=== PATIENT | female | born 2000 | race Caucasian/White ===

== ENCOUNTER 2023-08-31 08:20 | Emergency (ER) | payer MEDICARE, SELFPAY ==
[2023-08-31] VITALS (13 sets, daily range): BP systolic 90–146; BP diastolic 50–96; BMI 39.2
--- NOTE | 2023-08-31 08:52 | EDRN ---
Gutierrez BREWER in room w/ pt.
--- NOTE | 2023-08-31 08:56 | ED.GENMED ---
History of Present Illness
<Wilson Preciado PA-C - Last Filed: 08/31/23 10:59>
General
Chief Complaint: Fever
Source: patient
Exam Limitations: none
Time Seen by Provider: 08/31/23 08:43
Travel History
Have you had any contact with someone who has COVID-19?: No
Do you have any symptoms of coronavirus? Fever > 100 degrees, chills, cough, shortness of breath, sore throat, loss of taste or smell, muscle aches, or headache?: Yes
Symptoms:: Fever, SOB
History of Present Illness
History of Present Illness:
22-year-old female otherwise healthy presents with 5 days worth of chills fever neck stiffness nausea vomiting. She notes a headache as well. Temperatures been as high as 101. No significant cough or shortness of breath. No photosensitivity. No
rash. She states her neck feels much better today than it has in the past. She has been using Tylenol and ibuprofen. No other complaints at this time
Past History
<Wilson Preciado PA-C - Last Filed: 08/31/23 10:59>
Past History
ED Past Medical History: Other (Anxiety and 3 previous panic attacks) and Other (PCOS)
ED Past Surgical History: Orthopedic
Social History
Tobacco: Non-smoker
Alcohol: None
Drug: None
Personal: Single
Living: with family
Employment: Student
Family History
Family History: Other (Noncontributory)
Phy Exam
<Wilson Preciado PA-C - Last Filed: 08/31/23 10:59>
Physical Exam
Physical Exam:
General: Well-appearing female no acute respiratory distress nontoxic
HEENT: Normocephalic atraumatic TMs normal posterior pharynx without erythema no asymmetry no trismus or drooling neck is supple no adenopathy
Heart: Regular rate and rhythm no murmurs
Lungs: CTA, no wheeze
Neurologic exam: No meningeal signs alert and oriented no nuchal rigidity
Skin is warm no rash
Extremities: No cyanosis
Course
<Wilson Preciado PA-C - Last Filed: 08/31/23 10:59>
Orders/Labs/Results
Orders:
Orders
08/31/23 08:54
0.9% Sodium Chloride 1000 ml [Nss] 1,000 ml IV BOLUS
Ketorolac [Toradol] 15 mg IV NOW STA
Ondansetron Injectable [Zofran] 4 mg IV NOW STA
08/31/23 09:11
Bartonella henselae Ab IgG/IgM [S] Urgent
Comment: ADD ON
COVID-19 Antigen Urgent
Source: Nasal Swab
Complete Blood Count/With Diff Urgent
Comprehensive Metabolic Panel Urgent
HCG, Serum Qualitative Screen Urgent
Comment: ADD ON
Manual Differential Urgent
Monotest Urgent
Comment: ADD ON
Influenza A+B Rapid Molecular Urgent
SHANNEN Source: Nasal Swab
Specimen Description:
08/31/23 10:43
Add On- LAB Urgent
Tests Added?: monotest
08/31/23 12:37
US Abdomen Complete/Upper Urgent
Comment:
Reason For Exam: abdominal pain, elevated LFT
08/31/23 14:21
Add On- LAB Urgent
Tests Added?: serum hcg qualitative
08/31/23 14:53
CT Abd/pelvis W Iv Cont Urgent
Comment:
Reason For Exam: abdominal pain, fever
08/31/23 14:54
CR Chest - 2 Views Urgent
Comment:
Reason For Exam: fever
08/31/23 15:17
Urinalysis Reflex To Culture Urgent
Date Specimen was Collected: 08/31/23
Time Specimen was Collected: 15:16
Urine Microscopic Reflex Cult Urgent
08/31/23 18:30
Add On - Microbiology Urgent
Tests Added?: bartonella ab IgG/IgM
08/31/23 19:02
Add On - Microbiology Urgent
Tests Added?: Radha-Lepe Ab panel
Abnormal Lab Results
08/31/23 08/31/23
09:11 15:17
WBC 4.7 L 10^3/uL
(4.8-10.8)
MCHC 32.9 L g/dL
(33.0-37.0)
Segmented Neutrophils 41 L %
(42-75)
Band Neutrophils 14 H %
(0-3)
Chloride 108 H mmol/L
(98-107)
BUN 5 L mg/dl
(7-17)
Creatinine 0.5 L mg/dL
(0.6-1.0)
Glucose 102 H mg/dl
(70-99)
AST 327 H U/L
(14-36)
ALT 245 H U/L
(0-35)
Alkaline Phosphatase 315 H U/L
(38-126)
Urine Ketones 2+ A
(Negative)
Urine Bilirubin 1+ A
(Negative)
Leukocyte Esterase Rfl Trace A
(Negative)
Urine Bacteria (Reflex) Few A
(Negative)
08/31/23 09:11
08/31/23 09:11
Vital Signs
Initial and Last Documented VS:
Initial Vital Signs
Temp Pulse Resp BP Pulse Ox
98.2 F 91 18 144/96 98
08/31/23 08:22 08/31/23 08:22 08/31/23 08:22 08/31/23 08:22 08/31/23 08:22
Last Documented Vital Signs
Temp Pulse Resp BP Pulse Ox
98.2 F 83 14 110/73 98
08/31/23 08:22 08/31/23 18:33 08/31/23 18:33 08/31/23 18:33 08/31/23 18:33
<Ty Vallecillo, - Last Filed: 08/31/23 19:13>
Orders/Labs/Results
Orders:
Orders
08/31/23 08:54
0.9% Sodium Chloride 1000 ml [Nss] 1,000 ml IV BOLUS
Ketorolac [Toradol] 15 mg IV NOW STA
Ondansetron Injectable [Zofran] 4 mg IV NOW STA
08/31/23 09:11
Bartonella henselae Ab IgG/IgM [S] Urgent
Comment: ADD ON
COVID-19 Antigen Urgent
Source: Nasal Swab
Complete Blood Count/With Diff Urgent
Comprehensive Metabolic Panel Urgent
HCG, Serum Qualitative Screen Urgent
Comment: ADD ON
Manual Differential Urgent
Monotest Urgent
Comment: ADD ON
Influenza A+B Rapid Molecular Urgent
SHANNEN Source: Nasal Swab
Specimen Description:
08/31/23 10:43
Add On- LAB Urgent
Tests Added?: monotest
08/31/23 12:37
US Abdomen Complete/Upper Urgent
Comment:
Reason For Exam: abdominal pain, elevated LFT
08/31/23 14:21
Add On- LAB Urgent
Tests Added?: serum hcg qualitative
08/31/23 14:53
CT Abd/pelvis W Iv Cont Urgent
Comment:
Reason For Exam: abdominal pain, fever
08/31/23 14:54
CR Chest - 2 Views Urgent
Comment:
Reason For Exam: fever
08/31/23 15:17
Urinalysis Reflex To Culture Urgent
Date Specimen was Collected: 08/31/23
Time Specimen was Collected: 15:16
Urine Microscopic Reflex Cult Urgent
08/31/23 18:30
Add On - Microbiology Urgent
Tests Added?: bartonella ab IgG/IgM
08/31/23 19:02
Add On - Microbiology Urgent
Tests Added?: Radha-Lepe Ab panel
Abnormal Lab Results
08/31/23 08/31/23
09:11 15:17
WBC 4.7 L 10^3/uL
(4.8-10.8)
MCHC 32.9 L g/dL
(33.0-37.0)
Segmented Neutrophils 41 L %
(42-75)
Band Neutrophils 14 H %
(0-3)
Chloride 108 H mmol/L
(98-107)
BUN 5 L mg/dl
(7-17)
Creatinine 0.5 L mg/dL
(0.6-1.0)
Glucose 102 H mg/dl
(70-99)
AST 327 H U/L
(14-36)
ALT 245 H U/L
(0-35)
Alkaline Phosphatase 315 H U/L
(38-126)
Urine Ketones 2+ A
(Negative)
Urine Bilirubin 1+ A
(Negative)
Leukocyte Esterase Rfl Trace A
(Negative)
Urine Bacteria (Reflex) Few A
(Negative)
08/31/23 09:11
08/31/23 09:11
Vital Signs
Initial and Last Documented VS:
Initial Vital Signs
Temp Pulse Resp BP Pulse Ox
98.2 F 91 18 144/96 98
08/31/23 08:22 08/31/23 08:22 08/31/23 08:22 08/31/23 08:22 08/31/23 08:22
Last Documented Vital Signs
Temp Pulse Resp BP Pulse Ox
98.2 F 83 14 110/73 98
08/31/23 08:22 08/31/23 18:33 08/31/23 18:33 08/31/23 18:33 08/31/23 18:33
<Wilson Prceiado PA-C - Last Filed: 08/31/23 10:59>
MDM/Problems Addressed
Differential Diagnosis Includes:
Intermittent fever with neck stiffness. No meningeal signs on exam nontoxic we will check labs administer fluids and Toradol. Test for COVID and flu. No respiratory distress. Discussed role for lumbar puncture. At this point patient nontoxic no
meningeal signs no indication for lumbar puncture at this time
<Ty Vallecillo DO - Last Filed: 08/31/23 19:13>
*Radiology
Radiology exam reviewed: radiology read reviewed
*Pulse Oximetry
Patient hypoxic: no
*Critical Care Note
Total Time (30-74mins, 75-104mins- exclusive of procedures): 50 minutes
<DO Carlos Vázquez Last Filed: 08/31/23 19:13>
Patient Management
Discussion with other providers: Band Scroll Saw Operator (Infectious disease)
<Wilson Preciado PA-C - Last Filed: 08/31/23 10:59>
Update Note
Update Note:
Liver functions are elevated today. COVID and flu are negative. Patient had neck pain. Question neck pain was from adenopathy. Add monotest and ultrasound.
ED Attending Note
<Wilson Preciado PA-C - Last Filed: 08/31/23 10:59>
-
Portions of this chart may have been created with voice recognition software.� Occasional wrong word or��sound alike� substitutions may have occurred due to the inherent limitations of voice recognition software.
<Ty Vallecillo DO - Last Filed: 08/31/23 19:13>
ED Attending Note
Patient seen and examined by attending physician: Yes
I performed the substantive portion of visit, reviewed & personally made and approve the management plan that is documented in note by myself or CARLY.: Yes
ED Attending Note:
22-year-old female who presents with persistent fevers. She states she has had about fevers for 5 days and they have persisted. She states her fever will go away at times but then returned up to 101 or more. She states that seems to be a little
bit worse at night. She for started with pain in her right neck. States that has persisted. Is a little bit better but now has had more generalized lower abdominal discomfort. She also had nausea [place] lack of appetite. Patient's fatigue as
well. Exam: Mild right greater than left cervical lymphadenopathy, mild generalized lower abdominal tenderness, no rash, nonfocal neuroassessment.
Assessment and plan: Labs all reviewed. Noted to have elevated liver function studies. 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
sometimes volunteers at a Facility. She has had cat scratches. I do question Bartonella as an etiology. Labs added. Case was discussed with infectious disease. Recommend 500 mg of azithromycin for 7 days. Patient will follow-up as an outpatient
Discharge Plan
Departure
Patient Disposition: Home (Routine Discharge)
Date of Disposition: 08/31/23
Time of Disposition: 19:12
Patient with high blood pressure during this ER visit?: No
Discharge Problem:
Fever, Cat scratch fever
Instructions: Fever, Adult (DC)
Prescriptions:
New
azithromycin 500 mg tablet
500 mg PO DAILY Qty: 6 0RF
Referrals:
David Beckham MD [Family Provider] -
Lois Owens MD [Active] -
Activity Restrictions/Additional Instructions:
Possible cat scratch fever.
Please see your doctor or infectious disease in the next 3 to 5 days for follow-up and reevaluation. Return immediately for yellowing of the skin, vomiting, worsening symptoms of any kind, palpitations or any other concerns.
Interventions
Interventions:
*Risk Screen - Suicide Last Done: 08/31/23 09:10
*General Assessment Last Done: 08/31/23 09:10
*Neglect/Abuse Screening Last Done: 08/31/23 09:10
ED- Fall Risk Assessment Last Done: 08/31/23 09:10
*ED COVID-19 Vaccine History Last Done: 08/31/23 09:10
ED- Neurological Assessment Last Done: 08/31/23 09:10
ED-Skin Assessment Last Done: 08/31/23 09:10
[2023-08-31] MEDS: NSS 1000 IV (09:15)
[2023-08-31] MEDS: ZOFRAN 4 MG IV (09:19)
[2023-08-31] MEDS: TORADOL 15 MG IV (09:19)
[2023-08-31 09:39] LABS: Hemoglobin 13.5 g/dL (12.0-16.0); Mean Corp Hgb Conc. 32.9 g/dL (33.0-37.0); Mean Corpuscular Hgb 27.8 pg (27.0-31.0); Mean Corpuscular Volume 84.5 fL (81.0-99.0); Platelet Count 149 10^3/uL (130-400); Red Blood Cell Count 4.85 10^6/uL (4.20-5.40); Red Cell Dist. Width 13.2 % (11.5-14.5); White Blood Cell Count 4.7 10^3/uL (4.8-10.8)
[2023-08-31 09:50] LABS: ALT (SGPT) 245 U/L (0-35); AST (SGOT) 327 U/L (14-36); Albumin 4.1 g/dl (3.5-5.0); Alkaline Phosphatase 315 U/L (38-126); Blood Urea Nitrogen 5 mg/dl (7-17); Calcium 8.6 mg/dl (8.4-10.2); Carbon Dioxide 22 mmol/L (22-30); Chloride 108 mmol/L (98-107); Estimated Creatinine Clearance > 125 ml/min; Glucose 102 mg/dl (70-99); Potassium 3.6 mmol/L (3.5-5.1); Sodium 136 mmol/L (135-145); Total Bilirubin 1.1 mg/dl (0.2-1.3); Total Protein 6.8 g/dl (6.3-8.2); eGFR > 60.00
[2023-08-31 10:02] LABS: COVID-19 Antigen Negative (Negative)
[2023-08-31 10:28] LABS: Absolute Neutrophils -Man Diff 2.5 10^3/uL (1.4-6.5); Atypical Lymphocytes 8 %; Band Neutrophils 14 % (0-3); Lymphocytes 32 % (20-51); Monocytes 5 % (2-9); Normal RBC Morphology Yes; Platelets Checked Yes; Segmented Neutrophils 41 % (42-75); Total Cells Counted 100
[2023-08-31 11:36] LABS: Monotest Negative (Negative)
[2023-08-31 15:36] LABS: Urine Albumin Trace (Neg - Trace); Urine Bilirubin 1+ (Negative); Urine Character Clear (Clear); Urine Color Yellow; Urine Glucose Negative (Negative); Urine Ketone 2+ (Negative); Urine Leukocyte Trace (Negative); Urine Nitrite Negative (Negative); Urine Occult Blood Negative (Negative); Urine Urobilinogen 1+ (Neg - 1+)
[2023-08-31 15:47] LABS: Urine Bacteria Few (Negative); Urine Red Blood Cell 0-2 /HPF (0-2); Urine White Cell 0-2 /HPF (0-5)
[2023-08-31 16:13] LABS: HCG, Serum Qualitative Screen Negative
[2023-08-31] MEDS: ZITHROMAX 500 MG PO (19:14)
[2023-09-03 07:08] LABS: EBV-EA (D) Ab IgG <5.0 U/mL (0.0-10.9); EBV-NA IgG <3.0 U/mL (0.0-21.9); EBV-VCA IgG Antibodies <10.0 U/mL (0.0-21.9); EBV-VCA IgM Antibodies 65.6 U/mL (0.0-43.9)
[2023-09-05 07:31] LABS: Bartonella henselae IgM < 1:16
== END 2023-08-31 19:24 | disposition home or self-care (01) ==
LOC: EMR 08:20
PROVIDERS: Physician Assistant; EMERGENCY PHYSICIAN Emergency Medicine; FAMILY PHYSICIAN Pediatrics
DX: R50.9 Fever, unspecified (principal); A28.1 Cat-scratch disease; Z11.52 Encounter for screening for COVID-19
CPT/HCPCS: 99291; 96374; 96375; 96361 ×2; 71046; 74177; 76700; 80053; 81003; 81015; 84703; 85025; 86308; 86611; 86663; 86664; 86665; 87502; 87811; Q9967

== ENCOUNTER 2024-05-21 12:37 | Emergency (ER) | payer SELFPAY ==
[2024-05-21 12:39] VITALS: BP 140/93
[2024-05-21] MEDS: TYLENOL 1000 MG PO (14:12)
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
== END 2024-05-21 15:00 | disposition home or self-care (01) ==
LOC: EMR 12:37
PROVIDERS: EMERGENCY PHYSICIAN Emergency Medicine; FAMILY PHYSICIAN Student in an Organized Health Care Education/Training Program
DX: S16.1XXA Strain of muscle, fascia and tendon at neck level, initial encounter (principal); V43.52XA Car driver injured in collision with other type car in traffic accident, initial encounter
CPT/HCPCS: 99284; 70450; 72125